=== PATIENT | male | born 1990 ===

== ENCOUNTER 2018-03-11 03:44 | Emergency (ER) | payer OTHER ==
[2018-03-11 03:51] VITALS: BMI 25.0
[2018-03-11 03:53] VITALS: TEMP 98.2; O2SAT 98
--- NOTE | 2018-03-11 04:47 | ED PDOC ---
HPI: General Adult Time Seen by Provider: 03/11/18 04:01 Chief Complaint (Nursing): Dizziness/Lightheaded Chief Complaint (Provider): Insect Repellant Exposure History Per: Patient History/Exam Limitations: no limitations Onset/Duration Of Symptoms: Hrs Current Symptoms Are (Timing): Better Additional Complaint(s): 27 y/o man with a past medical history of ADHD and bipolar disorder presents to the ED with insect repellant exposure. Patient states he saw an insect in his studio apartment and purchased two cans of raid, one for flying insects and the other for ants and cockroaches, to fumigate his apartment. In order to so do, he sprayed himself and the air like if it is an air freshener. Patient reports feeling lightheaded after insect repellant exposure. Upon arrival to the ED, he states an improvement in symptoms. Past Medical History Reviewed: Historical Data, Nursing Documentation, Vital Signs Vital Signs: Last Vital Signs Temp 98.2 F 03/11/18 03:58 Pulse 83 03/11/18 04:28 Resp 17 03/11/18 04:28 BP 133/81 03/11/18 04:28 Pulse Ox 98 03/11/18 04:58 - Medical History PMH: Bipolar Disorder, Depression Other PMH: ADHD - Surgical History Surgical History: No Surg Hx - Family History Family History: States: Unknown Family Hx - Social History Current smoker - smoking cessation education provided: No Drugs: Denies - Allergies Allergies/Adverse Reactions: Allergies Allergy/AdvReac Type Severity Reaction Status Date / Time No Known Allergies Allergy Verified 03/11/18 04:01 Review of Systems ROS Statement: Except As Marked, All Systems Reviewed And Found Negative Constitutional: Negative for: Fever, Chills Cardiovascular: Positive for: Light Headedness. Negative for: Chest Pain Respiratory: Negative for: Shortness of Breath Gastrointestinal: Negative for: Abdominal Pain Physical Exam - Reviewed Nursing Documentation Reviewed: Yes Vital Signs Reviewed: Yes - Physical Exam Appears: Positive for: Well, Non-toxic, No Acute Distress Head Exam: Positive for: ATRAUMATIC, NORMAL INSPECTION, NORMOCEPHALIC Skin: Positive for: Normal Color, Warm, Dry Eye Exam: Positive for: Normal appearance Neck: Positive for: Normal, Painless ROM Cardiovascular/Chest: Positive for: Regular Rate, Rhythm Respiratory: Positive for: CNT, Normal Breath Sounds - ECG O2 Sat by Pulse Oximetry: 98 (RA) Medical Decision Making Medical Decision Making: Time: 427 Impression: Status post exposure to insect repellant fumes Poison Control Consultation: Discussed patient with [place], recommended exposure to fresh air, to remove clothes and wear clothes that were not sprayed, to change bedding, to open the window for ventilation, and to turn on the window air conditioning unit in [facility]. Scribe Attestation: Documented by Rosy Lee, acting as a scribe for Dr. Melinda Hudson MD Provider Scribe Attestation: All medical record entries made by the Scribe were at my direction and personally dictated by me. I have reviewed the chart and agree that the record accurately reflects my personal performance of the history, physical exam, medical decision making, and the department course for this patient. I have also personally directed, reviewed, and agree with the discharge instructions and disposition. Disposition - Clinical Impression Clinical Impression: Inhalation of noxious fumes - Disposition Referrals: Tigre Navarro MD [Primary Care Provider] - Disposition: Routine/Home Disposition Time: 13:00 Condition: STABLE Instructions: Chemical Exposure to the Skin (DC), Bug Repellents Forms: [employer] (Finnish)
[2018-03-11 05:22] VITALS: BP 133/81; PULSE 83; RESP 17
== END 2018-03-11 04:32 | disposition home or self-care (01) ==
LOC: H.ER 03:44
DX: Z77.098 Contact with and (suspected) exposure to other hazardous, chiefly nonmedicinal, chemicals (principal); F90.9 Attention-deficit hyperactivity disorder, unspecified type; F31.9 Bipolar disorder, unspecified

== ENCOUNTER 2018-04-25 01:42 | Emergency (ER) | payer OTHER ==
[2018-04-25 01:43] VITALS: BMI 25.0
[2018-04-25 01:48] VITALS: TEMP 97.6
[2018-04-25] MEDS ORDERED: Sodium Chloride 0.9% 1,000 ML IV STA (03:47)
--- NOTE | 2018-04-25 04:03 | ED PDOC ---
Syncope/Near Syncope/Dizziness Time Seen by Provider: 04/25/18 02:57 Chief Complaint (Nursing): Dizziness/Lightheaded Chief Complaint (Provider): Dizziness/Lightheaded History Per: Patient History/Exam Limitations: no limitations Onset/Duration Of Symptoms: Hrs Additional Complaint(s): Raghu Yuan is a 27 year old male with no past medical history who is presenting to the ED for evaluation of dizziness onset several hours prior to arrival. Patient states that he passed out and was at a bar but did not drink or take any drugs. He denies any history of syncope and reports that he thinks he was unconsciousness for only a few moments. Patient offers no other medical complaints at this time. PMD: none provided Past Medical History Reviewed: Historical Data, Nursing Documentation, Vital Signs Vital Signs: Last Vital Signs Temp 97.6 F 04/25/18 01:46 Pulse 94 H 04/25/18 01:46 Resp 18 04/25/18 01:46 BP 127/85 04/25/18 01:46 Pulse Ox 98 04/25/18 01:46 - Medical History PMH: Bipolar Disorder, Depression - Surgical History Other surgeries: corneal transplant, hernia surgery - Family History Family History: States: Unknown Family Hx - Social History Current smoker - smoking cessation education provided: No (former) Alcohol: None Drugs: Denies - Allergies Allergies/Adverse Reactions: Allergies Allergy/AdvReac Type Severity Reaction Status Date / Time No Known Allergies Allergy Verified 03/11/18 04:01 Review of Systems ROS Statement: Except As Marked, All Systems Reviewed And Found Negative Neurological: Positive for: Dizziness, Other (reported syncope) Physical Exam - Reviewed Nursing Documentation Reviewed: Yes Vital Signs Reviewed: Yes - Physical Exam Appears: Positive for: Non-toxic, No Acute Distress Head Exam: Positive for: ATRAUMATIC, NORMAL INSPECTION, NORMOCEPHALIC Skin: Positive for: Normal Color, Warm, DRY Eye Exam: Positive for: EOMI, Normal appearance, PERRL ENT: Positive for: Normal ENT Inspection Neck: Positive for: Normal Cardiovascular/Chest: Positive for: Regular Rate, Rhythm. Negative for: Murmur Respiratory: Positive for: Normal Breath Sounds. Negative for: Wheezing Gastrointestinal/Abdominal: Positive for: Normal Exam, Soft Back: Positive for: Normal Inspection Extremity: Positive for: Normal ROM Neurologic/Psych: Positive for: Alert, Oriented. Negative for: Motor/Sensory Deficits - Laboratory Results Result Diagrams: 04/25/18 04:05 04/25/18 04:05 - ECG ECG: Positive for: Interpreted By Me, Viewed By Me ECG Rhythm: Positive for: Normal QRS, Normal ST Segment, Sinus Rhythm. Negative for: ST/T Changes Rate: 72 O2 Sat by Pulse Oximetry: 98 (RA) Pulse Ox Interpretation: Normal Medical Decision Making Medical Decision Making: Time: 3:46 Impression: Syncope Differentials: Substance abuse, alcohol intoxication, cardiac arrhythmia, vasovagal syncope, seizures Plan: --EKG --Alcohol Serum --BMP --Drug Screen --Troponin --CBC --IV Fluids Scribe Attestation: Documented by, Namoi Patiño acting as a scribe for Heraclio Whaley MD. Provider Scribe Attestation: All medical record entries made by the Scribe were at my direction and personally dictated by me. I have reviewed the chart and agree that the record accurately reflects my personal performance of the history, physical exam, medical decision making, and the department course for this patient. I have also personally directed, reviewed, and agree with the discharge instructions and disposition. Disposition - Clinical Impression Clinical Impression: Syncope - Patient ED Disposition Is Patient to be Admitted: No Doctor Will See Patient In The: Office Counseled Patient/Family Regarding: Studies Performed, Diagnosis, Need For Followup - Disposition Referrals: [facility] [Outside] Disposition: Routine/Home Disposition Time: 04:59 Condition: GOOD Additional Instructions: Follow up with your PCP in 2-3 days. Instructions: Syncope (Fainting)
[2018-04-25 04:09] LABS: BASO % 0.5 % (0.0-2.0); EOS # 0.2 K/uL (0.0-0.7); EOS % 2.6 % (0.0-4.0); HEMOGLOBIN 13.6 g/dL (12.0-18.0); LYMPH # 2.3 K/uL (1.0-4.3); LYMPH % 30.3 % (20.0-40.0); MEAN CELL VOLUME 88.3 fl (80.0-94.0); MEAN CORPUSCULAR HEMOGLOBIN 30.3 pg (27.0-31.0); MEAN CORPUSCULAR HGB CONC 34.3 g/dL (33.0-37.0); MEAN PLATELET VOLUME 7.9 fl (7.2-11.7); MONO # 0.6 K/uL (0.0-0.8); MONO % 7.4 % (0.0-10.0); NEUT # 4.5 K/uL (1.8-7.0); NEUT % 59.2 % (50.0-75.0); NRBC % 0.1 % (0.0-0.0); RBC 4.49 Mil/uL (4.40-5.90); RED CELL DISTRIBUTION WIDTH 14.4 % (11.5-14.5); WHITE BLOOD COUNT 7.6 K/uL (4.8-10.8)
[2018-04-25 04:19] LABS: BLOOD UREA NITROGEN 18 mg/dl (9-20); CALCIUM 9.3 mg/dL (8.4-10.2); GFR AFRICAN-AMERICAN > 60; GFR NON-AFRICAN AMERICAN > 60
[2018-04-25 05:24] VITALS: BP 122/76; PULSE 81; RESP 14; O2SAT 100
--- NOTE | 2018-04-25 18:01 | CARD ---
APPROVED REPORT EKG Measurement Heart [id number] <Conclusion> Normal sinus rhythm Normal ECG
== END 2018-04-25 05:31 | disposition home or self-care (01) ==
LOC: H.ER 01:42
DX: R55 Syncope and collapse (principal); F31.9 Bipolar disorder, unspecified
CPT/HCPCS: 80048; 80320; 84484; 85025; 93005; 96360; 99284; J7030

== ENCOUNTER 2018-05-23 04:33 | Emergency (ER) | payer OTHER ==
[2018-05-23 04:34] VITALS: BMI 25.0
[2018-05-23 05:02] VITALS: RESP 18; TEMP 98.9; O2SAT 99
--- NOTE | 2018-05-23 05:34 | ED PDOC ---
HPI: Neurologic - General Chief Complaint (Provider): Numbness Source: patient - History of Present Illness Timing/Duration: 1/2 hour Associated Symptoms: other (headache) Additional Complaint(s): 27 yo, m, PMhx/o Bipolar disorder, ADHD, HTN presents to ED c/o numbness started 30 minutes ago over face, arms and chest, associated with frontal headache 04/27. 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 Patient went to [facility] but he left AMA because he had to work. Patient denies to be in manic episode because he has not dysphoria. He reports stress at home, but does not state the cause. He denies focal motor weakness, facial droop, slurred speech, fever, chills, cough, chest pain, SOB, n,v,d,abd pain. PMD: unable to remember name. <Mary Santos - Last Filed: 05/23/18 06:53> <Mary Alice Momin Y - Last Filed: 05/24/18 02:49> - General Time Seen by Provider: 05/23/18 04:48 Chief Complaint (Nursing): Upper Extremity Problem/Injury - History of Present Illness Allergies/Adverse Reactions: Allergies No Known Allergies Allergy (Verified 03/11/18 04:01) Supervising Attending Note - Supervising Attending Note The Documented history was done by the: Physician Annual Giving Director The documented physical exam was done by the: Physician Annual Giving Director The documented procedures were done by the: Physician Annual Giving Director - Attestation: I have personally seen and examined this patient.: Yes I have fully participated in the care of the patient.: Yes I have reviewed all pertinent clinical information, including history, physical exam and plan: Yes - Notes: Notes:: pt with numbness on top of body from abdomen to top. neuro exam is normal in the ER. labs, ct and reeval, signout to dr santos 7 am on 05/23/18 <Mary Alice Momin Y - Last Filed: 05/24/18 02:49> Past Medical History Reviewed: Historical Data, Nursing Documentation, Vital Signs Vital Signs: Last Vital Signs Temp 98.9 F 05/23/18 04:59 Pulse 82 05/23/18 04:59 Resp 18 05/23/18 04:59 BP 150/94 H 05/23/18 04:59 Pulse Ox 99 05/23/18 04:59 - Medical History PMH: Bipolar Disorder, Depression - Family History Family History: States: Unknown Family Hx <Mary Santos - Last Filed: 05/23/18 06:53> Vital Signs: Last Vital Signs Temp 98.9 F 05/23/18 04:59 Pulse 78 05/23/18 11:50 Resp 18 05/23/18 11:50 BP 135/74 05/23/18 11:50 Pulse Ox 99 05/23/18 11:50 <Mary Alice Momin Y - Last Filed: 05/24/18 02:49> - Allergies Allergies/Adverse Reactions: Allergies Allergy/AdvReac Type Severity Reaction Status Date / Time No Known Allergies Allergy Verified 03/11/18 04:01 Review of Systems ROS Statement: Except As Marked, All Systems Reviewed And Found Negative Neurological: Positive for: Numbness, Headache <Mary Santos - Last Filed: 05/23/18 06:53> Physical Exam - Physical Exam Appears: Positive for: Well, Non-toxic, No Acute Distress Head Exam: Positive for: ATRAUMATIC, NORMOCEPHALIC Skin: Positive for: Normal Color Neck: Positive for: Normal Cardiovascular/Chest: Positive for: Regular Rate, Rhythm. Negative for: Murmur Respiratory: Positive for: Decreased Breath Sounds. Negative for: Crackles, Rales, Rhonchi Gastrointestinal/Abdominal: Positive for: Soft. Negative for: Distended, Guarding, Rebound Back: Positive for: Normal Inspection Extremity: Positive for: Normal ROM. Negative for: Tenderness, Pedal Edema Neurologic/Psych: Positive for: Alert, Oriented, Motor/Sensory Deficits ( diminished sensation over face b/l and lateral side b/l arms. ). Negative for: Facial Droop <Mary Santos - Last Filed: 05/23/18 06:53> - Laboratory Results Result Diagrams: 05/23/18 05:41 05/23/18 05:41 - ECG O2 Sat by Pulse Oximetry: 99 <Mary Santos - Last Filed: 05/23/18 06:53> - Laboratory Results Result Diagrams: 05/23/18 05:41 05/23/18 05:41 <Mary Alice Momin - Last Filed: 05/24/18 02:49> Medical Decision Making Medical Decision Makin:00 Impression Numbness Differential CVA, cervical radiculopathy, peripheral neuropathy, Plan CBC, CMP, Mg, Phosphoros Ct Head w/o contrast Urine tox Serum ETOH 6: 32am Labs reviewed CBC, CMP, normal, Etoh level <10 <Mary Santos - Last Filed: 05/23/18 06:53> Disposition - Disposition Disposition Time: 06:55 <Mary Santos - Last Filed: 05/23/18 06:53> <Mary Alice Momin - Last Filed: 05/24/18 02:49> - Clinical Impression Clinical Impression: Paresthesia, Drug abuse - Disposition Referrals: [facility] [Outside] - 05/24/18 Condition: STABLE Additional Instructions: Return if not better in 3 days. Instructions: Drug Abuse and Drug Addiction (DC), Paresthesias (DC)
[2018-05-23 05:44] LABS: BASO % 0.4 % (0.0-2.0); EOS # 0.3 K/uL (0.0-0.7); EOS % 4.2 % (0.0-4.0); HEMOGLOBIN 12.8 g/dL (12.0-18.0); LYMPH # 2.2 K/uL (1.0-4.3); LYMPH % 33.5 % (20.0-40.0); MEAN CELL VOLUME 88.1 fl (80.0-94.0); MEAN CORPUSCULAR HEMOGLOBIN 29.5 pg (27.0-31.0); MEAN CORPUSCULAR HGB CONC 33.5 g/dL (33.0-37.0); MEAN PLATELET VOLUME 7.4 fl (7.2-11.7); MONO # 0.7 K/uL (0.0-0.8); MONO % 11.5 % (0.0-10.0); NEUT # 3.2 K/uL (1.8-7.0); NEUT % 50.4 % (50.0-75.0); NRBC % 0.1 % (0.0-0.0); RBC 4.32 Mil/uL (4.40-5.90); RED CELL DISTRIBUTION WIDTH 13.8 % (11.5-14.5); WHITE BLOOD COUNT 6.4 K/uL (4.8-10.8)
[2018-05-23 06:11] LABS: ALB/GLOB RATIO 1.5 (1.0-2.1); ALBUMIN 4.3 g/dL (3.5-5.0); ALT/SGPT 36 U/L (21-72); AST/SGOT 30 U/L (17-59); BLOOD UREA NITROGEN 14 mg/dl (9-20); CALCIUM 9.1 mg/dL (8.4-10.2); GFR AFRICAN-AMERICAN > 60; GFR NON-AFRICAN AMERICAN > 60
[2018-05-23 06:50] LABS: BARBITURATES, UR NEGATIVE (NEGATIVE); BENZODIAZEPINES, UR NEGATIVE (NEGATIVE); OPIATES, UR NEGATIVE (NEGATIVE); PHENCYCLIDINE, UR NEGATIVE (NEGATIVE)
--- NOTE | 2018-05-23 07:14 | ED PDOC ---
- Laboratory Results Result Diagrams: 05/23/18 05:41 05/23/18 05:41 Interpretation Of Abn Labs: amphetamine - ECG O2 Sat by Pulse Oximetry: 99 (RA) Pulse Ox Interpretation: Normal - Progress ED Course And Treament: 751: Stable. AAOx3. Pain free. Tolerated po. FU with pcp. Ambulated with no issues. Medical Decision Making Medical Decision Makin27 year old male with urine positive for amphetamines signed out to provider at [address] Momin pending CT scan. 0719 EXAM: CT Head Without Intravenous Contrast CLINICAL HISTORY: 27 years old, male; Signs and symptoms; Numbness / parasthesia; Bilateral; Additional info: Whole body numbness TECHNIQUE: Axial computed tomography images of the head/brain without intravenous contrast. All CT scans at this facility use at least one of these dose optimization techniques: automated exposure control; mA and/or kV adjustment per patient size (includes targeted exams where dose is matched to clinical indication); or iterative reconstruction. 315 images are submitted. Axial reformatted images are submitted in brain and bone windows. Coronal and sagittal reformatted images were created and reviewed. COMPARISON: No relevant prior studies available. FINDINGS: Brain: Unremarkable. No hemorrhage. No significant white matter disease. No edema. Ventricles: Unremarkable. No ventriculomegaly. Bones/joints: Unremarkable. No acute fracture. Soft tissues: Unremarkable. Sinuses: Patchy sinus disease. Mastoid air cells: Unremarkable. No mastoid effusion. Orbits: The globe and lens are intact. IMPRESSION: No evidence of an acute intracranial hemorrhage, midline shift or mass effect is identified.Changes of an acute infarct may not be visible on CT for up to 24 to 48 hours. If this is of clinical concern, a follow up examination and/or MRI may be of benefit. Documented by Eloina Caruso acting as a scribe for Maximiliano Dsouza MD. All medical record entries made by the Scribe were at my direction and personally dictated by me. I have reviewed the chart and agree that the record accurately reflects my personal performance of the history, physical exam, medical decision making, and the department course for this patient. I have also personally directed, reviewed, and agree with the discharge instructions and disposition. Disposition - Clinical Impression Clinical Impression: Paresthesia, Drug abuse - POA Present On Arrival: None - Disposition Referrals: [facility] [Outside] - 05/24/18 Disposition: Routine/Home Disposition Time: 07:52 Condition: STABLE Additional Instructions: Return if not better in 3 days. Instructions: Drug Abuse and Drug Addiction (DC), Paresthesias (DC)
--- NOTE | 2018-05-23 09:04 | CT ---
Date of service: 05/23/2018 PROCEDURE: CT HEAD WITHOUT CONTRAST. HISTORY: whole body numbness COMPARISON: None available. TECHNIQUE: Axial computed tomography images were obtained through the head/brain without intravenous contrast. Radiation dose: Total exam DLP = mGy-cm. This CT exam was performed using one or more of the following dose reduction techniques: Automated exposure control, adjustment of the mA and/or kV according to patient size, and/or use of iterative reconstruction technique. FINDINGS: HEMORRHAGE: No intracranial hemorrhage. BRAIN: No mass effect or edema. No atrophy or chronic microvascular ischemic changes. VENTRICLES: Unremarkable. No hydrocephalus. CALVARIUM: Unremarkable. PARANASAL SINUSES: Unremarkable as visualized. No significant inflammatory changes. MASTOID AIR CELLS: Unremarkable as visualized. No inflammatory changes. OTHER FINDINGS: None. IMPRESSION: Normal CT of the Head.
[2018-05-23 12:29] VITALS: BP 135/74; PULSE 78
== END 2018-05-23 12:00 | disposition home or self-care (01) ==
LOC: H.ER 04:33
DX: R20.2 Paresthesia of skin (principal); F19.10 Other psychoactive substance abuse, uncomplicated; F31.9 Bipolar disorder, unspecified

== ENCOUNTER 2018-08-12 17:15 | Emergency (ER) | payer OTHER ==
[2018-08-12 17:15] VITALS: BMI 25.0
[2018-08-12 17:25] VITALS: TEMP 97.5
[2018-08-12 17:53] VITALS: BP 141/79; PULSE 97; RESP 17; O2SAT 98
--- NOTE | 2018-08-12 18:05 | ED PDOC ---
HPI: General Adult Time Seen by Provider: 08/12/18 17:25 Chief Complaint (Nursing): Abnormal Skin Integrity Chief Complaint (Provider): Abnormal Skin Integrity History Per: Patient History/Exam Limitations: no limitations Onset/Duration Of Symptoms: Days (x1) Additional Complaint(s): Patient is a 27 y/o male complaining of a burning sensation along with itching and irritation to bilateral hands. Patient reports that he was in a hotel last night and there was an unknown white powder which he unintentionally touched, and reports that symptoms started after. He reports that he washed his hands hands, however, after sticking his hands back in his pockets the symptoms returned; he is concerned that there may have been some residual powder in his pockets. Patient appears anxious and states that he went to the the police who stated that they would not be able to test what powder was on his hands and suggested that he come to the ED. Past Medical History Reviewed: Historical Data, Nursing Documentation, Vital Signs Vital Signs: Last Vital Signs Temp 97.5 F L 08/12/18 17:19 Pulse 97 H 08/12/18 17:52 Resp 17 08/12/18 17:52 BP 141/79 08/12/18 17:52 Pulse Ox 98 08/12/18 17:52 - Medical History PMH: No Chronic Diseases, Bipolar Disorder, Depression - Surgical History Surgical History: No Surg Hx - Family History Family History: States: Unknown Family Hx - Home Medications Home Medications: Ambulatory Orders Medication Instructions Recorded Methylprednisolone [Medrol Dose 4 mg PO DAILY #21 mg 08/12/18 Pack (21 tabs)] Mupirocin 2% Cream [Bactroban 30 applic TOP BID #1 tube 08/12/18 Cream] - Allergies Allergies/Adverse Reactions: Allergies Allergy/AdvReac Type Severity Reaction Status Date / Time No Known Allergies Allergy Verified 08/12/18 17:19 Review of Systems ROS Statement: Except As Marked, All Systems Reviewed And Found Negative Skin: Positive for: Other (itching burning) Physical Exam - Reviewed Nursing Documentation Reviewed: Yes Vital Signs Reviewed: Yes - Physical Exam Appears: Positive for: Well, Non-toxic, No Acute Distress Head Exam: Positive for: ATRAUMATIC, NORMOCEPHALIC Skin: Positive for: Dry (Dorsal aspect of bilateral hands are erythematous, dry cracks noted in skin, positive excoriations, no powder noted) Eye Exam: Positive for: EOMI, Normal appearance, PERRL Neurologic/Psych: Positive for: Alert, Oriented - ECG O2 Sat by Pulse Oximetry: 98 (RA) Pulse Ox Interpretation: Normal Medical Decision Making Medical Decision Making: Time: 172 Impression: 27 y/o male complaining of burning, itching, and irritation to bilateral hands Initial plan: --patient washed hadns with surgical scrub --patient declined benadryl --patient started on prednisone and given Bactroban Ointment. Time: 1800 --patient appears more calm on discussion and his repeat pulse is now 97. Scribe Attestation: Documented by Zia Shook, acting as a scribe for Taisha Avelar PA-C Provider Scribe Attestation: All medical record entries made by the Scribe were at my direction and personally dictated by me. I have reviewed the chart and agree that the record accurately reflects my personal performance of the history, physical exam, medical decision making, and the department course for this patient. I have also personally directed, reviewed, and agree with the discharge instructions and disposition. Disposition - Clinical Impression Clinical Impression: Contact dermatitis - Patient ED Disposition Is Patient to be Admitted: No - Disposition Disposition: Routine/Home Disposition Time: 14:00 Condition: STABLE Prescriptions: Methylprednisolone [Medrol Dose Pack (21 tabs)] 4 mg PO DAILY #21 mg Mupirocin 2% Cream [Bactroban Cream] 30 applic TOP BID #1 tube Instructions: Contact Dermatitis (DC) Forms: [employer] (Welsh)
== END 2018-08-12 17:53 | disposition home or self-care (01) ==
LOC: H.ER 17:15
DX: L25.9 Unspecified contact dermatitis, unspecified cause (principal)

== ENCOUNTER 2018-08-22 16:01 | Emergency (ER) | payer OTHER ==
[2018-08-22 16:02] VITALS: BMI 25.0
[2018-08-22] MEDS ORDERED: Sodium Chloride 0.9% 1,000 ML IV STA (16:32)
--- NOTE | 2018-08-22 16:52 | ED PDOC ---
HPI: Abdomen Time Seen by Provider: 08/22/18 16:12 Chief Complaint (Nursing): Abdominal Pain Past Medical History Vital Signs: Last Vital Signs Temp 98.3 F 08/22/18 16:05 Pulse 82 08/22/18 16:05 Resp 19 08/22/18 16:05 BP 141/97 H 08/22/18 16:05 Pulse Ox 100 08/22/18 16:05 - Medical History PMH: Bipolar Disorder, Depression - Family History Family History: States: Unknown Family Hx - Home Medications Home Medications: Ambulatory Orders Medication Instructions Recorded Methylprednisolone [Medrol Dose 4 mg PO DAILY #21 mg 08/12/18 Pack (21 tabs)] Mupirocin 2% Cream [Bactroban 30 applic TOP BID #1 tube 08/12/18 Cream] - Allergies Allergies/Adverse Reactions: Allergies Allergy/AdvReac Type Severity Reaction Status Date / Time No Known Allergies Allergy Verified 08/12/18 17:19 - ECG O2 Sat by Pulse Oximetry: 100 Disposition - Disposition
[2018-08-22 16:56] LABS: BASO % 0.4 % (0.0-2.0); EOS # 0.1 K/uL (0.0-0.7); EOS % 1.2 % (0.0-4.0); HEMOGLOBIN 13.1 g/dL (12.0-18.0); LYMPH # 1.1 K/uL (1.0-4.3); LYMPH % 12.3 % (20.0-40.0); MEAN CORPUSCULAR HEMOGLOBIN 30.3 pg (27.0-31.0); MEAN CORPUSCULAR HGB CONC 33.3 g/dL (33.0-37.0); MONO # 0.5 K/uL (0.0-0.8); MONO % 5.4 % (0.0-10.0); NEUT # 7.4 K/uL (1.8-7.0); NEUT % 80.7 % (50.0-75.0); RBC 4.34 Mil/uL (4.40-5.90); RED CELL DISTRIBUTION WIDTH 14.6 % (11.5-14.5); WHITE BLOOD COUNT 9.1 K/uL (4.8-10.8)
--- NOTE | 2018-08-22 16:57 | ED PDOC ---
HPI: Headache Time Seen by Provider: 08/22/18 16:12 Chief Complaint (Nursing): Abdominal Pain Chief Complaint (Provider): Headache History Per: Patient History/Exam Limitations: no limitations Onset/Duration Of Symptoms: Days (1x) Current Symptoms Are (Timing): Still Present Severity: Moderate Associated Symptoms: Nausea, Vomiting (2x episodes, non bloody), Other (epigastric abdominal pain) Additional Complaint(s): 27 year old male with presents to the ED with complaints of a headache that started this morning. Patient states he woke up with a holocephalic headache associated with nausea, 2x episodes of non-bloody vomiting, followed by epigastric abdominal pain. Patient reports taking an advil today 4x hours prior to arrival when his headache progressively worsened. Patient reports having a cough, congestion, and possible fever 2x days ago. Patient denies having any head injuries, a history of headaches, shortness of breath, chest pain, light sensitivity, diarrhea, and constipation. PMD: Tigre Navarro MD Past Medical History Reviewed: Historical Data, Nursing Documentation, Vital Signs Vital Signs: Last Vital Signs Temp 98.3 F 08/22/18 16:05 Pulse 82 08/22/18 16:05 Resp 19 08/22/18 16:05 BP 141/97 H 08/22/18 16:05 Pulse Ox 100 08/22/18 16:52 - Medical History PMH: Bipolar Disorder, Depression - Surgical History Surgical History: Hernia Repair - Family History Family History: States: No Known Family Hx - Social History Alcohol: None Drugs: Denies - Home Medications Home Medications: Ambulatory Orders Medication Instructions Recorded Methylprednisolone [Medrol Dose 4 mg PO DAILY #21 mg 08/12/18 Pack (21 tabs)] Mupirocin 2% Cream [Bactroban 30 applic TOP BID #1 tube 08/12/18 Cream] Ondansetron ODT [Zofran ODT] 4 mg PO TID #10 odt 08/22/18 Oseltamivir [Tamiflu] 75 mg PO BID #10 cap 08/22/18 RX: Naproxen [Naprosyn] 500 mg PO BID PRN #10 tab 08/22/18 - Allergies Allergies/Adverse Reactions: Allergies Allergy/AdvReac Type Severity Reaction Status Date / Time No Known Allergies Allergy Verified 08/12/18 17:19 Review of Systems ROS Statement: Except As Marked, All Systems Reviewed And Found Negative Cardiovascular: Negative for: Chest Pain Respiratory: Negative for: Shortness of Breath Gastrointestinal: Positive for: Nausea, Vomiting (2x episodes, non bloody), Abdominal Pain (epigastric). Negative for: Diarrhea, Constipation Neurological: Positive for: Headache (holocephalic). Negative for: Other (light sensitivity) Physical Exam - Reviewed Nursing Documentation Reviewed: Yes Vital Signs Reviewed: Yes - Physical Exam Appears: Positive for: Well, Non-toxic, No Acute Distress Head Exam: Positive for: ATRAUMATIC, NORMOCEPHALIC Skin: Positive for: Normal Color Eye Exam: Positive for: Normal appearance Cardiovascular/Chest: Positive for: Regular Rate, Rhythm Respiratory: Positive for: Normal Breath Sounds Gastrointestinal/Abdominal: Positive for: Normal Exam, Soft. Negative for: Tenderness Neurologic/Psych: Positive for: Alert, Oriented (3x) - Laboratory Results Result Diagrams: 08/22/18 16:50 08/22/18 16:50 - ECG O2 Sat by Pulse Oximetry: 100 (RA) Pulse Ox Interpretation: Normal - Progress Condition: Re-examined, Improved (headache has completely resolved along with abd pain and nausea) Medical Decision Making Medical Decision Makin:12 Initial impression: 27 year old male with a headache. Initial plan: * CT head w/o contrast * CXR PA & LAT * CMP * lipase * CBC * influenza A B * rapid strep * urinalysis * IV NS 1,000 ml IV 1,000 mls/hr * pepcid 20 mg IVP * reglan 10 mg IVP * reevaluation Scribe Attestation: Documented Phil Stearns, acting as a scribe for Sacha Souza Provider Scribe Attestation: All medical record entries made by the Scribe were at my direction and personally dictated by me. I have reviewed the chart and agree that the record accurately reflects my personal performance of the history, physical exam, medical decision making, and the department course for this patient. I have also personally directed, reviewed, and agree with the discharge instructions and disposition. Disposition - Clinical Impression Clinical Impression: Influenza-like illness - Patient ED Disposition Is Patient to be Admitted: No - Disposition Referrals: Ora Sanders MD [Staff Provider] - Disposition: Routine/Home Disposition Time: 18:43 Condition: IMPROVED Additional Instructions: FOLLOW UP WITH DR. SANDERS FOR FURTHER EVALUATION RETURN TO ED IMMEDIATELY IF SYMPTOMS WORSEN ODETTE DELGADO, thank you for letting us take care of you today. Your provider was Erik Payan III, DO and you were treated for DIZZINESS,NAUSEA. The emergency medical care you received today was directed at your acute symptoms. If you were prescribed any medication, please fill it and take as directed. It may take several days for your symptoms to resolve. Return to the Emergency Department if your symptoms worsen, do not improve, or if you have any other problems. Please contact your doctor or call one of the physicians/clinics you have been referred to that are listed on the Patient Visit Information form that is included in your discharge packet. Bring any paperwork you were given at discharge with you along with any medications you are taking to your follow up visit. Our treatment cannot replace ongoing medical care by a primary care provider outside of the emergency department. Thank you for allowing the [facility] team to be part of your care today. If you had an X-Ray or CT scan: A Radiologist will review the ED reading if any change in treatment is needed we will contact you. If you had a blood, urine, or wound culture: It will take several days for the results, if any change in treatment is needed we will contact you. If you had an STI test: It will take 48 hours for the results. Please call after 1 week if you have not heard back. Prescriptions: RX: Naproxen [Naprosyn] 500 mg PO BID PRN #10 tab PRN Reason: Pain Ondansetron ODT [Zofran ODT] 4 mg PO TID #10 odt Oseltamivir [Tamiflu] 75 mg PO BID #10 cap Instructions: Viral Syndrome (DC) Forms: [email or web address] ([place]), [facility] ED School/Work Excuse
[2018-08-22 17:06] LABS: ALB/GLOB RATIO 1.4 (1.0-2.1); ALBUMIN 4.7 g/dL (3.5-5.0); ALT/SGPT 41 U/L (21-72); AST/SGOT 35 U/L (17-59); BLOOD UREA NITROGEN 16 mg/dl (9-20); CALCIUM 9.6 mg/dL (8.4-10.2); GFR NON-AFRICAN AMERICAN > 60; LIPASE 36 U/L (23-300)
[2018-08-22 19:21] VITALS: BP 137/83; PULSE 81; RESP 17; TEMP 98.1
[2018-08-22 19:36] VITALS: O2SAT 100
--- NOTE | 2018-08-23 09:33 | RAD ---
Date of service: 08/22/2018 HISTORY: cough COMPARISON: No prior. TECHNIQUE: Chest PA and lateral FINDINGS: LUNGS: No active pulmonary disease. PLEURA: No significant pleural effusion identified. No pneumothorax apparent. CARDIOVASCULAR: No aortic atherosclerotic calcification present. Normal cardiac size. No pulmonary vascular congestion. OSSEOUS STRUCTURES: No significant abnormalities. VISUALIZED UPPER ABDOMEN: Normal. OTHER FINDINGS: None. IMPRESSION: No acute cardiopulmonary disease appreciated.
--- NOTE | 2018-08-23 10:29 | CT ---
Date of service: 08/22/2018 PROCEDURE: CT HEAD WITHOUT CONTRAST. HISTORY: headache COMPARISON: Comparison is made with 05/23/2018 TECHNIQUE: Axial computed tomography images were obtained through the head/brain without intravenous contrast. Radiation dose: Total exam DLP = 894.02 mGy-cm. This CT exam was performed using one or more of the following dose reduction techniques: Automated exposure control, adjustment of the mA and/or kV according to patient size, and/or use of iterative reconstruction technique. FINDINGS: HEMORRHAGE: No intracranial hemorrhage. BRAIN: No mass effect or edema. No atrophy or chronic microvascular ischemic changes. VENTRICLES: Unremarkable. No hydrocephalus. CALVARIUM: Unremarkable. PARANASAL SINUSES: Unremarkable as visualized. No significant inflammatory changes. MASTOID AIR CELLS: Unremarkable as visualized. No inflammatory changes. OTHER FINDINGS: None. IMPRESSION: Normal CT of the Head. No significant interval changes. Preliminary report contains concordant findings was submitted to the referring physicianby [facility] radiology
== END 2018-08-22 19:21 | disposition home or self-care (01) ==
LOC: H.ER 16:01
DX: J11.1 Influenza due to unidentified influenza virus with other respiratory manifestations (principal)
CPT/HCPCS: 70450; 71046; 80053; 83690; 85025; 87070; 87430; 87804; 96374; 96375; 99283; J2765; J7030

== ENCOUNTER 2018-08-24 20:26 | Inpatient (IN) | payer OTHER ==
[2018-08-24 20:27] VITALS: BMI 25.0
--- NOTE | 2018-08-24 21:49 | ED PDOC ---
HPI: Psych/Substance Abuse Time Seen by Provider: 08/24/18 20:40 Chief Complaint (Nursing): Psychiatric Evaluation Chief Complaint (Provider): Psychiatric Evaluation History Per: Patient History/Exam Limitations: no limitations Additional Complaint(s): 27 y/o male with history of bipolar disorder presents to the ED psychiatric evaluation. Patient was drinking over the weekend and states he drinks occasionally. He states he has been depressed over the past few day. He denies any suicidal ideation just states the feel depressed and wants to see a psychiatrist. He has no additional medical complaints. Past Medical History Reviewed: Historical Data, Nursing Documentation, Vital Signs Vital Signs: Last Vital Signs Temp 98.2 F 08/24/18 20:57 Pulse 83 08/24/18 20:57 Resp 19 08/24/18 20:57 BP 162/93 H 08/24/18 20:57 Pulse Ox 100 08/24/18 20:57 - Medical History PMH: Bipolar Disorder, Depression - Surgical History Surgical History: Hernia Repair - Family History Family History: States: Unknown Family Hx - Social History Current smoker - smoking cessation education provided: No Alcohol: Occasional Drugs: Denies - Home Medications Home Medications: Ambulatory Orders Medication Instructions Recorded Dextroamphetamine/Amphetamine 20 mg PO BID 08/25/18 [Adderall 20 mg Tablet] Lamotrigine [Lamictal Xr] 100 mg PO DAILY 08/25/18 buPROPion SR [Wellbutrin] 100 mg PO BID 08/25/18 - Allergies Allergies/Adverse Reactions: Allergies Allergy/AdvReac Type Severity Reaction Status Date / Time No Known Allergies Allergy Verified 08/24/18 20:58 Review of Systems ROS Statement: Except As Marked, All Systems Reviewed And Found Negative Psych: Positive for: Depression. Negative for: Suicidal ideation Physical Exam - Reviewed Nursing Documentation Reviewed: Yes Vital Signs Reviewed: Yes - Physical Exam Appears: Positive for: Well, Non-toxic, No Acute Distress Head Exam: Positive for: ATRAUMATIC, NORMAL INSPECTION, NORMOCEPHALIC Skin: Positive for: Normal Color, Warm, DRY Eye Exam: Positive for: EOMI, Normal appearance, PERRL ENT: Positive for: Normal ENT Inspection Neck: Positive for: Normal Cardiovascular/Chest: Positive for: Regular Rate, Rhythm. Negative for: Murmur Respiratory: Positive for: Normal Breath Sounds. Negative for: Respiratory Distress Gastrointestinal/Abdominal: Positive for: Normal Exam, Soft. Negative for: Tenderness Extremity: Positive for: Normal ROM. Negative for: Pedal Edema, Deformity Neurologic/Psych: Positive for: Alert, Oriented, Mood/Affect (calm and cooperative). Negative for: Motor/Sensory Deficits - Laboratory Results Result Diagrams: 08/24/18 22:25 08/24/18 22:25 - ECG O2 Sat by Pulse Oximetry: 100 (RA) Pulse Ox Interpretation: Normal Medical Decision Making Medical Decision Making: Time: 21:09 Initial Impression: Psychiatric evaluation Initial Plan: * EKG * Acetaminophen * Alcohol serum * BMP * Salicylate * Drug screen * CBC w/ diff * UA EKG: normal sinus rhythm at 81bpm pt medically cleared for psych Patient will be admitted for schizophrenia under the care of Dr. Pinon Scribe Attestation: Documented by Zia Shook acting as a scribe for Mary Alice Momin MD. Provider Scribe Attestation: All medical record entries made by the Scribe were at my direction and personally dictated by me. I have reviewed the chart and agree that the record accurately reflects my personal performance of the history, physical exam, medical decision making, and the department course for this patient. I have also personally directed, reviewed, and agree with the discharge instructions and disposition. Disposition - Clinical Impression Clinical Impression: Schizophrenia - Patient ED Disposition Is Patient to be Admitted: Yes Counseled Patient/Family Regarding: Studies Performed, Diagnosis, Need For Followup - Disposition Disposition Time: 03:00 Condition: STABLE
[2018-08-24 22:40] LABS: BASO # 0.1 K/uL (0.0-0.2); BASO % 0.9 % (0.0-2.0); EOS # 0.3 K/uL (0.0-0.7); EOS % 4.2 % (0.0-4.0); HEMOGLOBIN 12.9 g/dL (12.0-18.0); LYMPH # 1.7 K/uL (1.0-4.3); LYMPH % 27.2 % (20.0-40.0); MEAN CELL VOLUME 90.8 fl (80.0-94.0); MEAN CORPUSCULAR HEMOGLOBIN 30.2 pg (27.0-31.0); MEAN CORPUSCULAR HGB CONC 33.3 g/dL (33.0-37.0); MEAN PLATELET VOLUME 7.9 fl (7.2-11.7); MONO # 0.6 K/uL (0.0-0.8); MONO % 8.7 % (0.0-10.0); NEUT # 3.8 K/uL (1.8-7.0); RBC 4.27 Mil/uL (4.40-5.90); RED CELL DISTRIBUTION WIDTH 14.4 % (11.5-14.5); WHITE BLOOD COUNT 6.4 K/uL (4.8-10.8)
[2018-08-24 22:49] LABS: ACETAMINOPHEN < 10.0 ug/ml (10.0-30.0); SALICYLATE < 1.0 mg/dl
[2018-08-24 22:50] LABS: BLOOD UREA NITROGEN 13 mg/dl (9-20); CALCIUM 9.2 mg/dL (8.4-10.2); GFR NON-AFRICAN AMERICAN > 60
[2018-08-25 03:33] VITALS: O2SAT 100
[2018-08-25 05:20] LABS: URINE AMORPHOUS SEDIMENT RARE /ul (<OCC); URINE BILIRUBIN NEGATIVE (NEGATIVE); URINE BLOOD NEGATIVE (NEGATIVE); URINE CLARITY CLOUDY (Clear); URINE COLOR YELLOW (YELLOW); URINE GLUCOSE (UA) NEG (Normal); URINE LEUKOCYTE ESTERASE NEG Leu/uL (Negative); URINE PROTEIN 30 mg/dL (NEGATIVE)
[2018-08-25] MEDS ORDERED: Magnesium Hydroxide Susp 30 ml UD PO PRN (05:31)
[2018-08-25] MEDS ORDERED: Alum-Mag Hydrox-Simethicone Susp (30 mL) PO PRN (05:31)
[2018-08-25] MEDS ORDERED: DiphenhydrAMINE 50 mg/ml Inj IM PRN (05:31)
[2018-08-25 05:53] LABS: BARBITURATES, UR NEGATIVE (NEGATIVE); BENZODIAZEPINES, UR NEGATIVE (NEGATIVE); OPIATES, UR NEGATIVE (NEGATIVE); PHENCYCLIDINE, UR NEGATIVE (NEGATIVE)
[2018-08-25 05:58] VITALS: RESP 18
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
[2018-08-25 08:07] LABS: T4 5.66 ug/dl (5.5-11.0)
--- NOTE | 2018-08-25 08:43 | CARD ---
APPROVED REPORT Date of service: 08/24/2018 EKG Measurement Heart [id number] <Conclusion> Normal sinus rhythm with sinus arrhythmia Normal ECG
[2018-08-25] MEDS ORDERED: Pneumococcal 23-Valent Vaccine IM ONE (09:00)
[2018-08-25] MEDS ORDERED: Influenza Vaccine (5 YR UP)/PF 60 MCG/0.5 ML SYR IM ONE (09:30)
[2018-08-25] MEDS ORDERED: Risperidone M tab 1 MG PO STA (12:44)
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
[2018-08-25] MEDS ORDERED: Vitamin A/D oint 60G TP PRN (18:18)
[2018-08-25] MEDS ORDERED: Risperidone M tab 1 MG PO SCH (22:00)
[2018-08-26] MEDS ORDERED: Risperidone M tab 1 MG PO SCH (09:00)
[2018-08-26] MEDS: Multivitamin With Minerals Tab PO SCH (12:51)
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
[2018-08-27] MEDS: Multivitamin With Minerals Tab PO SCH (10:19)
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
[2018-08-27 17:38] VITALS: BP 145/82; PULSE 96; TEMP 97
== END 2018-08-27 20:14 | disposition home or self-care (01) | DRG 753 ==
LOC: H.ER 20:26 → H.ERHOLD 08-25 03:04 → H.PSYCH 08-25 05:25
PROVIDERS: ADMIT Psychiatry & Neurology Psychiatry; ATTEND Psychiatry & Neurology Psychiatry
PROC: GZHZZZZ Group Psychotherapy (ICD-10-PCS; principal; 2018-08-25)
PROC: GZ58ZZZ Individual Psychotherapy, Cognitive-Behavioral (ICD-10-PCS; 2018-08-25)
PROC: 3E02340 Introduction of Influenza Vaccine into Muscle, Percutaneous Approach (ICD-10-PCS; 2018-08-25)
PROC: 3E0234Z Introduction of Serum, Toxoid and Vaccine into Muscle, Percutaneous Approach (ICD-10-PCS; 2018-08-25)
DX: F31.64 Bipolar disorder, current episode mixed, severe, with psychotic features (principal); R45.851 Suicidal ideations; F15.159 Other stimulant abuse with stimulant-induced psychotic disorder, unspecified; F10.10 Alcohol abuse, uncomplicated; Z91.5 Personal history of self-harm; Z23 Encounter for immunization

== ENCOUNTER 2018-09-05 13:44 | Emergency (ER) | payer OTHER ==
[2018-09-05 13:45] VITALS: BMI 25.0
[2018-09-05 13:49] VITALS: TEMP 98.2; O2SAT 100
[2018-09-05] MEDS ORDERED: Sodium Chloride 0.9% 1,000 ML IV SCH (15:00)
[2018-09-05 15:36] LABS: BASO % 0.5 % (0.0-2.0); EOS # 0.3 K/uL (0.0-0.7); EOS % 3.7 % (0.0-4.0); HEMOGLOBIN 13.5 g/dL (12.0-18.0); LYMPH % 27.1 % (20.0-40.0); MEAN CELL VOLUME 91.6 fl (80.0-94.0); MEAN CORPUSCULAR HEMOGLOBIN 30.4 pg (27.0-31.0); MEAN CORPUSCULAR HGB CONC 33.2 g/dL (33.0-37.0); MEAN PLATELET VOLUME 8.1 fl (7.2-11.7); MONO # 0.5 K/uL (0.0-0.8); MONO % 7.2 % (0.0-10.0); NEUT # 4.5 K/uL (1.8-7.0); NEUT % 61.5 % (50.0-75.0); NRBC % 0.1 % (0.0-0.0); RBC 4.45 Mil/uL (4.40-5.90); RED CELL DISTRIBUTION WIDTH 13.8 % (11.5-14.5); WHITE BLOOD COUNT 7.3 K/uL (4.8-10.8)
[2018-09-05 15:49] LABS: ALB/GLOB RATIO 1.5 (1.0-2.1); ALBUMIN 4.5 g/dL (3.5-5.0); ALT/SGPT 43 U/L (21-72); AST/SGOT 41 U/L (17-59); BLOOD UREA NITROGEN 19 mg/dl (9-20); CALCIUM 9.5 mg/dL (8.4-10.2); GFR NON-AFRICAN AMERICAN > 60
[2018-09-05 15:58] LABS: BARBITURATES, UR NEGATIVE (NEGATIVE); BENZODIAZEPINES, UR NEGATIVE (NEGATIVE); OPIATES, UR NEGATIVE (NEGATIVE); PHENCYCLIDINE, UR NEGATIVE (NEGATIVE)
--- NOTE | 2018-09-05 17:45 | ED PDOC ---
HPI: Abdomen Time Seen by Provider: 09/05/18 14:15 Chief Complaint (Nursing): Abdominal Pain Chief Complaint (Provider): abdominal pain, dizziness History Per: Patient History/Exam Limitations: no limitations Onset/Duration Of Symptoms: Hrs (started last night) Current Symptoms Are (Timing): Still Present Location Of Pain/Discomfort: Suprapubic Associated Symptoms: Nausea. denies: Fever, Chills, Diarrhea, Loss Of Appetite Additional Complaint(s): Pt. reports feeling dizzy starting last night, described as lightheaded and "foggy". Pt. also reports about the same time as the dizziness he developed lower abdominal pain, described as intermittent and mild. Pt. is tolerating po, reports some nausea but denies vomitting and diarrhea. No fevers, no chills. Past Medical History Reviewed: Historical Data, Nursing Documentation, Vital Signs Vital Signs: Last Vital Signs Temp 98.2 F 09/05/18 13:46 Pulse 83 09/05/18 13:46 Resp 16 09/05/18 13:46 BP 131/84 09/05/18 13:46 Pulse Ox 100 09/05/18 13:46 - Medical History PMH: Bipolar Disorder, Depression, Schizophrenia Denies: Diabetes, Hepatitis, HIV, HTN, Chronic Kidney Disease, Seizures, Sexually Transmitted Disease - Surgical History Surgical History: No Surg Hx, Hernia Repair - Family History Family History: States: Unknown Family Hx - Home Medications Home Medications: Ambulatory Orders Medication Instructions Recorded ARIPiprazole [Abilify] 10 mg PO DAILY 15 Days #15 tab 08/27/18 lamoTRIgine [Lamictal] 50 mg PO BID 60 Days #15 tab 08/27/18 - Allergies Allergies/Adverse Reactions: Allergies Allergy/AdvReac Type Severity Reaction Status Date / Time No Known Allergies Allergy Verified 08/24/18 20:58 Physical Exam - Physical Exam Appears: Positive for: Well, Non-toxic Head Exam: Positive for: ATRAUMATIC Skin: Positive for: Normal Color, Warm, Dry ENT: Positive for: Normal ENT Inspection Cardiovascular/Chest: Positive for: Regular Rate, Rhythm Respiratory: Positive for: Normal Breath Sounds Gastrointestinal/Abdominal: Positive for: Soft, Tenderness (mild suprapubic tenderness. ). Negative for: Distended, Guarding Male Genital Exam: Positive for: normal genitalia, no hernia. Negative for: inguinal tenderness, scrotum tenderness (R), scrotum tenderness (L), testicular tenderness (R), testicular tenderness (L), urethral discharge - Laboratory Results Result Diagrams: 09/05/18 14:55 09/05/18 14:55 - ECG O2 Sat by Pulse Oximetry: 100 Medical Decision Making Medical Decision Making: IV access established, IVF given, IV Toradol and IV Zofran given. Orthostatics wnl. Standing bp repeated 135/70 with HR 83. On reassessment, pt. reports feeling much better. Pt. is ambulating with steady gait, no further dizziness. Pt. reports abd. pain resolved. Discharge exam, abd. soft/nt, neuro intact, steady gait. Disposition - Clinical Impression Clinical Impression: Abdominal pain, Dizziness - Patient ED Disposition Is Patient to be Admitted: No Counseled Patient/Family Regarding: Studies Performed, Diagnosis, Need For Followup - Disposition Disposition: Routine/Home Disposition Time: 17:50 Condition: IMPROVED Instructions: Acute Abdomen (Belly Pain), Dizziness, Nonvertigo, (DC)
[2018-09-05 18:00] VITALS: BP 138/61; PULSE 78; RESP 18
--- NOTE | 2018-09-06 11:11 | CARD ---
APPROVED REPORT Date of service: 09/05/2018 EKG Measurement Heart [id number] <Conclusion> Normal sinus rhythm Normal ECG
== END 2018-09-05 18:01 | disposition home or self-care (01) ==
LOC: H.ER 13:44
DX: R10.9 Unspecified abdominal pain (principal); R42 Dizziness and giddiness
CPT/HCPCS: 80053; 80320; 80324; 80345; 80346; 80349; 80353; 80358; 80361; 83992; 85025; 93005; 96361; 96374; 99283; J2405; J7030